=== PATIENT | male | born 1980 | race Caucasian/White ===

== ENCOUNTER → 2017-10-17 | Outpatient (CLI) | payer OTHER ==
[2017-10-17 11:34] VITALS: BMI 25.8
== END | disposition home or self-care (01) ==
LOC: DBWHC3 11:10
PROVIDERS: ATTEND Legal Medicine
DX: D64.9 Anemia, unspecified (principal); K57.00 Diverticulitis of small intestine with perforation and abscess without bleeding; K52.3 Indeterminate colitis; R79.9 Abnormal finding of blood chemistry, unspecified
CPT/HCPCS: 97802